=== PATIENT | female | born 1975 | race African-American/Black ===

== ENCOUNTER 2017-07-10 11:13 | Inpatient (IN) ==
[2017-07-10] MEDS ORDERED: NITROGLYCERIN 2% OINT 1 INCH/GM PACK TOP STA (11:45)
[2017-07-10] MEDS ORDERED: NITROGLYCERIN SL 0.4 MG TABLET SL PRN (11:45)
[2017-07-10] MEDS ORDERED: ONDANSETRON 4 MG/2 ML VIAL IV PRN ×2 (11:45→14:30)
[2017-07-10] MEDS ORDERED: ASPIRIN 325 MG TABLET PO STA (11:45)
[2017-07-10] MEDS ORDERED: MORPHINE 2 MG/1 ML SYRINGE IV PRN ×2 (11:45→14:30)
[2017-07-10] MEDS ORDERED: ENOXAPARIN 100 MG/ML SYRINGE SUBCUT STA (11:45)
--- NOTE | 2017-07-10 11:48 | EKG Report ---
Stationary ECG Study [facility] ER Test Date: 07/10/2017 11:21:31 AM Pat Name: MARIANELA CAMPBELL Department: Room: Gender: F Life Consultant: Yoon Roman : 1975 Requested by: Vick Anderson Order Number: [id number] Reading MD: EDGAR MENDOZA Intervals [place] Rate: 66 P: 66 SC: 149 QRS: 75 QRSD: 80 T: 68 QT: 392 QTc: 406 Interpretive Statements SINUS RHYTHM WITH SINUS ARRHYTHMIA at 66 bpm NONSPECIFIC T-WAVE ABNORMALITY Electronically Signed On 07-13-17 12:23:52 CDT by EDGAR MENDOZA [id number]
[2017-07-10] MEDS ORDERED: ASPIRIN 325 MG TABLET ONE (11:51)
[2017-07-10] MEDS ORDERED: NITROGLYCERIN 2% OINT 1 INCH/GM PACK TOP ONE (11:51)
[2017-07-10] MEDS ORDERED: ENOXAPARIN 100 MG/ML SYRINGE SUBCUT ONE (11:51)
--- NOTE | 2017-07-10 11:51 | Emergency Department Note ---
Naseem Herrera Gwan, am scribing for, and in the presence of, Vick Elliott MD 11:38 . Lexi Herrera James D, MD, personally performed the services described in this documentation, ascribed by Pina Gusman in my presence, and it is both accurate and complete . Arrival - Arrival Chief Complaint: Chest Pain Stated Complaint: chest pain,SOB ED Nursing Triage Note: c/o mid-sternal chest pain onset 07/06/17. Describes as tightness. +shortness of breath. +nausea. +productive cough with yellow sputum. Mode of Arrival: Wheelchair Limitations: No Limitations Source: Patient, Old Records Reviewed, RN Notes Reviewed - History of Present Illness HPI Narrative: Patient is a 41 y/o female who presents to the ED with a c/o mid-sternal chest pain with an onset 4 days ago. Patient describes her chest discomfort as a constant pressure and exertion exacerbates her discomfort. She also stated that she has been having SOB, nausea and productive cough with yellow sputum. She denies having any hx of heart problems or DM. Patient stated that she is in pain while in ED. No other problems/complaints reported in ED. Onset (ago): day(s) Consistency: constant Severity: moderate Date of Last Menstrual Period: 3 weeks ago Allergies/Adverse Reactions: Allergies Allergy/AdvReac Type Severity Reaction Status Date / Time No Known Allergies Allergy Verified 07/10/17 11:27 Review of System - Review of System 12 point system: reviewed and no additional remarkable complaints except as stated - Review of System Respiratory: Present: as per HPI, cough, other (shortness of breathe) Cardiovascular: Present: as per HPI, chest pain Gastrointestinal: Present: as per HPI, nausea. Absent: abdominal pain, vomiting , diarrhea Medical,Surgical,& Family Hx - Medical History Endocrine: History of: Thyroid Disorder Other: History of: HIV - Social History Smoking Status: Never smoker Frequency of Alcohol Use: None Type of Drug Use: None Exam Physical Examination: GENERAL: This is a well-nourished, well-developed female in no apparent distress. VITAL SIGNS: HEENT: Head is normocephalic and atraumatic. Pupils are equally round and reactive to light. Extraocular movement are intact. Oropharynx is benign with moist mucous membranes. NECK: Neck is soft and supple without tenderness. There are no masses. There is no lymphadenopathy. LUNGS: Lungs are clear to auscultation bilaterally. Chest rises symmetrically. There is no chest wall tenderness. CV: Heart is regular rate and rhythm without murmurs, rubs, or gallops. ABDOMEN: Abdomen is soft, non-tender to palpation. There are no abnormal masses palpated. There is no organomegaly. Bowel sounds are present and active. SKIN: Skin is warm and dry. No rash. EXTREMITIES: Patient has full range of motion without tenderness. There is no pedal edema. NEUROLOGIC: Awake, alert, and oriented x4. Cranial nerves II through XII are grossly intact. There are no motorsensory deficits. PSYCHIATRIC: Normal affect. Normal mood. Vital Signs: Vital Signs Temperature 97.0 F L 07/10/17 12:08 Pulse Rate 62 07/10/17 12:08 Respiratory Rate 20 07/10/17 12:08 Blood Pressure 137/87 07/10/17 12:08 O2 Sat by Pulse Oximetry 98 07/10/17 11:30 Course - Consultations Consultation #1: Discussed with hospitalist. Patient will be admitted to their service. Time: 13:14 Results - Labs CBC & BMP: 07/10/17 11:46 07/10/17 11:46 Lab Results: I have reviewed the patients labs Labs: Laboratory Tests 07/10/17 11:46 Troponin I < 0.015 - EKG EKG results: interpreted by ERMD - Impressions EKG: Normal sinus rhythm with sinus arrhythmia, rate 66, nonspecific ST-T wave changes. - Diagnostic Findings Procedure: Chest x-ray: image reviewed by me (No infiltrates, no pleural effusions.) Disposition Clinical Impression: Chest pain Case discussed with: patient Disposition: Still a Patient Condition: Stable
[2017-07-10 11:53] LABS: Basophils # 0.1 10*3/uL (0.0-0.2); Basophils % 0.6 % (0.0-0.8); Eosinophils # 0.5 10*3/uL (0.0-0.87); Eosinophils % 4.7 % (0.00-10.9); Hematocrit 31.9 VOL% (35.7-47.0); Hemoglobin 9.8 GM/DL (12.0-16.0); Immature Granulocytes % 0.8 %; Immature Granulocytes Absolute 0.08 #; Lymphocytes # 4.9 10*3/uL (1.4-4.0); Lymphocytes % 46.9 % (21.3-54.2); Mean Corpuscular HGB Conc 30.7 GM/DL (32-36); Mean Corpuscular Hemoglobin 25 PG (27-34); Mean Corpuscular Volume 79.9 FL (87-102); Mean Platelet Volume 10.1 FL (9.6-12.0); Monocytes # 0.9 10*3/uL (0.11-0.8); Monocytes % 8.1 % (1.7-12.7); Neutrophils # 4.1 10*3/uL (1.4-7.4); Neutrophils % 38.9 % (38.7-73.9); Platelet Count 462 T/CUMM (130-400); Red Blood Count 3.99 MC/CUMM (3.8-5.5); Red Cell Distribution Width 17.1 % (9.3-17.3); White Blood Count 10.5 T/CUMM (4-12)
[2017-07-10] MEDS ORDERED: MORPHINE 2 MG/1 ML SYRINGE ONE (11:56)
[2017-07-10] MEDS ORDERED: ONDANSETRON 4 MG/2 ML VIAL ONE (11:56)
[2017-07-10 12:02] LABS: PT Patient Result 10.3 SECS
--- NOTE | 2017-07-10 12:13 | XRay Report ---
2 view chest. Indication: Chest pain. Comparison: September 19, 2014. The heart and mediastinal contours are unremarkable. The pulmonary vasculature is normal. There is no consolidation, pneumothorax, or pleural effusion. The osseous structures are unremarkable. Impression: No abnormality is seen. PROCEDURE INTERPRETED AT [facility] DEPARTMENT OF RADIOLOGY Final Report Signed by: Dr. Christina Martinez
[2017-07-10 12:15] LABS: Alanine Aminotransferase 20 U/L (13-56); Albumin 3.4 G/DL (3.4-5.0); Alkaline Phosphatase 111 U/L (45-117); Aspartate Amino Transferase 13 U/L (0-37); Bilirubin,Total < 0.39 MG/DL (0.2-1.0); Blood Urea Nitrogen 10 MG/DL (7-18); Calcium 8.7 MG/DL (8.5-10.1); Glucose 99 MG/DL (74-106); Sodium 136 MMOL/L (136-145); Total Protein 7.9 G/DL (6.4-8.3)
[2017-07-10] MEDS ORDERED: ALBUTEROL 2.5 MG/3 ML NEB RESP TX PRN (13:44)
[2017-07-10] MEDS ORDERED: DOCUSATE SODIUM 100 MG CAPSULE PO PRN (14:30)
[2017-07-10] MEDS ORDERED: ACETAMINOPHEN 325 MG TABLET PO PRN (14:30)
[2017-07-10] MEDS ORDERED: diphenhydrAMINE CAP 25 MG CAPSULE PO PRN (14:30)
[2017-07-10] MEDS ORDERED: guaiFENesin/DM ER 600-30 MG TABLET PO PRN (14:30)
[2017-07-10] MEDS ORDERED: ALUM/MAG/SIMETH/LIDO VISC 1:1 30 ML BOTTLE PO ONE ×2 (14:37→19:00)
--- NOTE | 2017-07-10 14:46 | Hospitalist History & Physical ---
<Sierra Holly - Last Filed: 07/10/17 14:41> Assessment and Plan - Time spent with patient Time spent with patient: Greater than 30 minutes (1) Shortness of breath Status: Acute Assessment and plan: 41-year-old -[place] female with history of HIV and hyperthyroidism admitted by the hospitalist service with chest pain for 3-4 days with associated nausea and shortness of breath. Her initial workup has been negative thus far. We will admit the patient overnight to obtain serial EKG and troponins. Went ahead and ordered a GI cocktail to rule out GERD and ordered Protonix daily as well. Do not feel GI consult is needed due to patient not having difficulty swallowing or complaints of food getting stuck in her esophagus. Since patient just saw her HIV physician yesterday and all checked out without problems no need to consult Dr. Jeffries. Went ahead and continued her home medications including her Zithromax and breathing treatments received from primary care physician. Dr. Sandoval will see and examine patient and further recommendations to follow. Current Visit: Yes (2) Nausea Status: Acute Current Visit: Yes (3) History of HIV infection Status: Acute Current Visit: Yes (4) Hyperthyroidism Status: Acute Current Visit: Yes (5) Chest pain Status: Acute Current Visit: Yes History of Present Illness Chief complaint: Substernal chest pain, nausea, shortness of breath History of present illness: Ms. Lozano is a 41 year old -[place] female with history of HIV positive and hyperthyroidism presenting to the ED with a 3-4 day history of substernal unrelenting chest pain that worsens with exertion associated with nausea and shortness of breath. Patient states she went to immediate care clinic where she was given some Zithromax and steroid shot. She feels that has not improved much since then. She points to the middle of her sternum and states it feels like a burning gnawing sensation. She does not have difficulty swallowing solids or liquids and has not had any problems eating. She states she does see a physician for her HIV she just had an appointment [place] yesterday. They did blood work and she states her CD4 counts are okay and everything looks good. She is to follow-up in September. Patient is afebrile her vital signs are stable. She does have iron deficiency anemia with her H&H at 9.8/31.9 but otherwise her chemistry, CBC and troponins are normal. Her chest x-ray shows no acute abnormality. Her EKG shows sinus rhythm with sinus arrhythmia with a nonspecific T-wave abnormality. Upon exam her chest is clear and she does have sinus rhythm with few PVCs. Her abdomen is soft and nontender she has no lower extremity edema. After discussion with Dr. Elliott the ED physician and Dr. Sandoval the admitting hospitalist, it was agreed patient will be admitted for further evaluation and treatment. Home Medications Medication Instructions Recorded Confirmed Type Albuterol Sulfate [Ventolin HFA] 1 - 2 puffs INH Q4H PRN 07/10/17 07/10/17 History Azithromycin Tab [Zithromax Tab] 250 mg PO DAILY 07/10/17 07/10/17 History Darunavir Ethanolate [Prezista] 600 mg PO BID 07/10/17 07/10/17 History Emtricitabine/Tenofov Alafenam 1 tablet PO QAM 07/10/17 07/10/17 History [Descovy 200-25 mg Tablet] Propranolol HCl [Propranolol Tab] 20 mg PO BEDTIME 07/10/17 07/10/17 History Ritonavir [Norvir] 100 mg PO BID 07/10/17 07/10/17 History methIMAzole [Methimazole] 10 mg PO QAM 07/10/17 07/10/17 History methIMAzole [Methimazole] 20 mg PO BID@1200,2000 07/10/17 07/10/17 History Allergies Allergy/AdvReac Type Severity Reaction Status Date / Time No Known Allergies Allergy Verified 07/10/17 11:27 Medical,Surgical,& Family Hx - Medical History Endocrine: History of: Thyroid Disorder Other: History of: HIV - Surgical History HEENT Surgeries: Patient denies: Eye Surgery Abdominal Surgeries: Patient denies: Cholecystectomy Orthopedic Surgeries: Patient denies;: Orthopedic Surgery - Family History Family History: Reports;: Family Heart Disease - Social History Smoking Status: Never smoker Frequency of Alcohol Use: None Type of Drug Use: None Marital Status: Single Lives With:: Alone Functional capacity: independent ambulation 12 point system: reviewed and no additional remarkable complaints except as stated Exam - Constitutional Vitals: Period Temp Pulse Resp BP Sys/Wagner Pulse Ox Last 24 Hr 97.0 F-97.0 F 62-72 18-20 108-137/69-87 98-100 Exam: Constitutional System: No distress. No tremulousness. Head: Normocephalic, atraumatic. Ears, Nose and Throat System: No evidence of Otitis or Mastoiditis. No epistaxis or discharge Eyes System: Pupils equal, round, and reactive. Extraocular muscles intact. Neck: Supple, without adenopathy, No jugular venous distention. No thyromegaly, neck mass, or prior surgery apparent. Respiratory System: Chest clear to auscultation. Cardiovascular System: Heart with regular rate and rhythm. No murmur. GI System: Abdomen soft, nontender. Normo active bowel sounds present. Musculoskeletal System: limbs with no pedal edema. Full distal pulses. Neurological System: No discernable sensory deficit. No aphasia Psychiatric System: Conversation is rational Results - Labs CBC & BMP: 07/10/17 11:46 07/10/17 11:46 Lab Results: I have reviewed the past 24 hour labs - EKG EKG results: sinus rhythm - Diagnostic Findings Procedure: Chest x-ray: report reviewed by me (No acute process) <John Sandoval - Last Filed: 07/10/17 15:20> History of Present Illness History of present illness: Ms. Lozano is a 41 year old female with approximately 3 day history of chest pain. Patient has a previously known history of HIV for which she has been followed by Dr. Lopez, whom she has recently seen prior to this admission. Evaluation in the emergency department disclose no evidence of an acute myocardial infarction. I have interviewed and examined the patient and reviewed all the available laboratory and radiographic test results. I agree with the assessment and plans of RAMONITA Fischer. The patient is to be admitted to the hospital for further evaluation and management. Cardiology has been consulted. Exam - Constitutional Vitals: Period Temp Pulse Resp BP Sys/Wagner Pulse Ox Last 24 Hr 97.0 F-97.0 F 60-72 18-20 108-137/69-87 98-100 Results - Labs CBC & BMP: 07/10/17 11:46 07/10/17 11:46
--- NOTE | 2017-07-10 15:19 | EKG Report ---
Stationary ECG Study [facility] ER Test Date: 07/10/2017 3:17:50 PM Pat Name: MARIANELA CAMPBELL Department: Room: EDNCIT Gender: F Tank Calibrator: : 1975 Requested by: Vick Anderson Order Number: [id number] Reading MD: KANDICE HANSEN Intervals [place] Rate: 61 P: 24 ID: 128 QRS: 72 QRSD: 87 T: 44 QT: 427 QTc: 431 Interpretive Statements SINUS RHYTHM NONSPECIFIC T-WAVE ABNORMALITY Electronically Signed On 07-13-17 17:14:18 CDT by KANDICE HANSEN [id number]
[2017-07-10 15:41] LABS: Risk Ratio 4.04; Thyroid Stimulating Hormone 2.97 uIU/ml (0.358-3.74); VLDL CHOLESTEROL 23.2 MG/DL
[2017-07-10 15:44] LABS: Free T4 (Free Thyroxine) 0.72 NG/DL (0.76-1.46); Troponin I Only < 0.015 NG/ML (0.00-0.045)
[2017-07-10] MEDS ORDERED: ALBUTEROL 2.5 MG/3 ML NEB RESP TX ONE (15:51)
[2017-07-10] MEDS: ENOXAPARIN 40 MG/0.4 ML SYRINGE SUBCUT SCH (17:17)
--- NOTE | 2017-07-10 17:32 | EKG Report ---
Stationary ECG Study [facility] Test Date: 07/10/2017 5:33:33 PM Pat Name: MARIANELA CAMPBELL Department: Room: 239 Gender: F Milling Machine Set Up Operator: JARETT : 1975 Requested by: Vick Anderson Order Number: [id number] Reading MD: KANDICE HANSEN Intervals [place] Rate: 79 P: 55 [place]: 146 QRS: 49 QRSD: 82 T: 52 QT: 448 QTc: 482 Interpretive Statements SINUS RHYTHM WITH SINUS ARRHYTHMIA Electronically Signed On 07-13-17 17:16:06 CDT by KANDICE HANSEN [id number]
[2017-07-10] MEDS: SODIUM CHLORIDE 0.9% 1,000 ML IV SCH (17:34)
[2017-07-10] MEDS: AZITHROMYCIN 250 MG TABLET PO SCH (17:36)
[2017-07-10] MEDS: PANTOPRAZOLE 40 MG TABLET PO SCH (17:36)
[2017-07-10] MEDS: ALBUTEROL/IPRATROPIUM 3 ML NEB RESP TX SCH (19:32)
[2017-07-10] MEDS: methIMAzole 10 MG TABLET PO SCH (21:09)
[2017-07-10] MEDS: PROPRANOLOL 20 MG TABLET PO SCH (21:09)
[2017-07-10 22:28] LABS: Troponin I Only < 0.015 NG/ML (0.00-0.045)
[2017-07-11] MEDS: ALBUTEROL/IPRATROPIUM 3 ML NEB RESP TX SCH ×4 (00:16→19:06)
[2017-07-11] MEDS: SODIUM CHLORIDE 0.9% 1,000 ML IV SCH ×3 (01:40→18:24)
[2017-07-11 05:54] LABS: Basophils # 0.1 10*3/uL (0.0-0.2); Basophils % 0.6 % (0.0-0.8); Eosinophils # 0.5 10*3/uL (0.0-0.87); Eosinophils % 5.3 % (0.00-10.9); Hematocrit 29.4 VOL% (35.7-47.0); Hemoglobin 8.7 GM/DL (12.0-16.0); Immature Granulocytes % 0.7 %; Immature Granulocytes Absolute 0.06 #; Lymphocytes # 4.2 10*3/uL (1.4-4.0); Lymphocytes % 49.6 % (21.3-54.2); Mean Corpuscular HGB Conc 29.6 GM/DL (32-36); Mean Corpuscular Hemoglobin 24 PG (27-34); Mean Corpuscular Volume 80.3 FL (87-102); Mean Platelet Volume 10.5 FL (9.6-12.0); Monocytes # 0.8 10*3/uL (0.11-0.8); Monocytes % 9.8 % (1.7-12.7); Neutrophils # 2.9 10*3/uL (1.4-7.4); Platelet Count 432 T/CUMM (130-400); Red Blood Count 3.66 MC/CUMM (3.8-5.5); White Blood Count 8.5 T/CUMM (4-12)
[2017-07-11 06:25] LABS: Band Neutrophils 1 % (0-10); Eosinophils 6 % (0-10); Giant Platelets Few; Hypochromasia 1+; Lymphocytes 50 % (20-55); Ovalocytes Slight; Platelet Estimate Adequate; Segmented Neutrophils 31 % (50-85); Total Cells Counted 100
[2017-07-11 06:40] LABS: Troponin I Only < 0.015 NG/ML (0.00-0.045)
[2017-07-11 06:59] LABS: Albumin 2.8 G/DL (3.4-5.0); Bilirubin,Total 0.8 MG/DL (0.2-1.0); Calcium 8.6 MG/DL (8.5-10.1); Osmolality,Calculated 280.1 MOS/KG (273-304); Potassium 4.6 MMOL/L (3.5-5.1); Total Protein 6.2 G/DL (6.4-8.3)
[2017-07-11] MEDS: ENOXAPARIN 40 MG/0.4 ML SYRINGE SUBCUT SCH (09:41)
[2017-07-11] MEDS: PANTOPRAZOLE 40 MG TABLET PO SCH (09:41)
[2017-07-11] MEDS: DESCOVY 200MG/25MG PO SCH (09:42)
[2017-07-11] MEDS: NORVIR 100 MG PO SCH ×2 (09:42→21:03)
[2017-07-11] MEDS: PREZISTA 600MG PO SCH ×2 (09:42→21:03)
[2017-07-11] MEDS: methIMAzole 10 MG TABLET PO SCH ×3 (09:47→21:03)
--- NOTE | 2017-07-11 10:25 | Cardiology Consult Note ---
Assessment and Plan - Time spent with patient Time spent with patient: Greater than 30 minutes (1) Cough Status: Acute Assessment and plan: Suspicious for bronchitis or croup. She believes this may be improving minimally. Current Visit: Yes (2) Chest pain Status: Acute Assessment and plan: Atypical for chest pain. Will continue cycle cardiac biomarkers and EKG. Query as to whether this is GI in nature. Will add PPI to her medication regimen. Also, she is having a musculoskeletal component to the reproducible chest pain as well. Current Visit: Yes (3) Shortness of breath Status: Acute Assessment and plan: Suspect bronchitis. May benefit from outpatient echocardiogram and/or stress test Current Visit: Yes (4) History of HIV infection Status: Chronic Assessment and plan: Sees her physician routinely. Stable Current Visit: Yes History of Present Illness - Data of Consult Patient: new to practice Consult date: 07/11/17 Requesting Physician: Lizett Bah - Consult Narrative Reason for consult: chest pain History of present illness: ORCHESTRA CONDUCTOR: DR. HANSEN ([facility]) Ms. Lozano, 41BF, with no real risk factors for cardiac disease other than obesity. History of hyperthyroidism, HIV. Admitted July 10, 2017 with complaints of unrelenting chest pain occurring for approximately 3 days. Cardiology was consulted for evaluation of chest pain. Cardiac biomarkers are negative, EKG is unremarkable. Patient reports she was recently treated for sinus infection outpatient and since that time, she has begun nonproductive, frequent coughing with shortness of breath. As I entered the room, she has a "barking" cough similar to croup. Chest pain has been occurring for approximately 24 hours. Described as "gnawing and burning" in the mid sternal area. Chest pain is not associated with shortness of breath. She is tender in this area when palpating but also tender in multiple other areas including epigastric area and right upper abdominal quadrant. Chest pain is not brought on with exertion. Patient acknowledges she had recent mild bilateral lower extremity swelling after traveling back from [place], [place]. No prior history of DVT. Will check for DVT with venous ultrasound. PPI. Patient is anemic and still has a menstrual cycle. She tells me she is spotting from the vagina currently that she recently had a full menstrual cycle. At this point, patient may benefit from out patient stress testing and echocardiogram. Patient may benefit from GI evaluation. I will further discuss with Dr. Hansen and await additional recommendations. CC: Lizett Bah MD - Home Medications and Allergies Home Medications: Home Medications Medication Instructions Recorded Confirmed Type Albuterol Sulfate [Ventolin HFA] 1 - 2 puffs INH Q4H PRN 07/10/17 07/10/17 History Azithromycin Tab [Zithromax Tab] 250 mg PO DAILY 07/10/17 07/10/17 History Darunavir Ethanolate [Prezista] 600 mg PO BID 07/10/17 07/10/17 History Emtricitabine/Tenofov Alafenam 1 tablet PO QAM 07/10/17 07/10/17 History [Descovy 200-25 mg Tablet] Propranolol HCl [Propranolol Tab] 20 mg PO BEDTIME 07/10/17 07/10/17 History Ritonavir [Norvir] 100 mg PO BID 07/10/17 07/10/17 History methIMAzole [Methimazole] 10 mg PO QAM 07/10/17 07/10/17 History methIMAzole [Methimazole] 20 mg PO BID@1200,199907/10/17 07/10/17 History Allergies/Adverse Reactions: Allergies Allergy/AdvReac Type Severity Reaction Status Date / Time No Known Allergies Allergy Verified 07/10/17 11:27 Review of systems: REVIEW OF SYSTEMS: - Constitutional Constitutional: Present: Fatigue over the past week. Patient's states she does snore but not loudly. No air hunger or gasping for air while sleeping. Absent: syncope, anorexia, night sweats - EENT Eyes: Absent: blurry vision, loss of vision, diplopia Ears: Absent: decreased hearing, ear pain, ear discharge - Cardiovascular Cardiovascular: Denies: chest pain with exertion. Chest pain has been consistent and described as gnawing and burning. Mild recent edema bilateral lower extremities. Denies palpitations. Absent: chest pain with deep breath, claudication - Respiratory Respiratory: Present: MUNROE, dry hacking cough. Unable to produce phlegm at this time. Absent: wheezing, hemoptysis, change in phlegm color - Gastrointestinal Gastrointestinal: Denies: constipation. Epigastric and right upper quadrant abdominal discomfort to palpation. Denies vomiting blood or passing blood in her stool. - Genitourinary Genitourinary: Vaginal spotting. Absent: difficulty urinating, dysuria, urinary hesitancy, flank pain - Musculoskeletal Musculoskeletal: Present: back pain Absent: joint swelling, muscle cramps, muscle weakness - Neurological Neurological: Present: normal gait without frequent falls. Absent: dizziness, hemiparesis - Psychiatric Psychiatric: Absent: anxiety, depression, difficulty concentrating - Endocrine Endocrine: Absent: cold intolerance, heat intolerance, polyuria, polyphagia, polydipsia - Hematologic/Lymphatic Hematologic/Lymphatic: Present: easy bruising. Absent: easy bleeding -Integumentary Integumentary: Absent: lesions, rashes, skin breakdown Medical,Surgical,& Family Hx - Medical History Cardio: No history of: Cardiac Dysrhythmia, CAD, Hypertension, NM Endocrine: History of: Thyroid Disorder Other: History of: HIV - Surgical History HEENT Surgeries: Patient denies: Eye Surgery Abdominal Surgeries: Patient denies: Cholecystectomy Reproductive Surgeries: Surgical HX of;: Tubal Ligation Orthopedic Surgeries: Patient denies;: Orthopedic Surgery - Family History Family History: Reports;: Family Heart Disease - Social History Smoking Status: Never smoker Have you smoked in the last 12 months: No Frequency of Alcohol Use: None Type of Drug Use: None Marital Status: Lives With:: Spouse Functional capacity: independent ambulation Physical Examination Vital Signs Temp Pulse Resp BP Pulse Ox 97.0 F L 62 20 137/87 100 07/10/17 11:20 07/10/17 11:20 07/10/17 11:20 07/10/17 11:20 07/10/17 11:20 Exam: General: [Appears well with no apparent distress.] [Pleasant and cooperative. ] [Appears comfortable.] HEENT: [PERRL, normocephalic, atraumatic. Mucous membranes moist. No jaundice noted. Conjunctiva moist and clear, sclerae anicteric] Neck: Unable to assess for JVD due to habitus. No thyromegaly or lymphadenopathy noted. No carotid bruit appreciated Cardiac: [Regular rate and rhythm.] [No murmur, rub or gallop.] Tender to palpation mid chest. Lungs: [Clear to auscultation without accessory muscle use to assist the respiratory pattern.] Not requiring oxygen Abdomen: Soft, bowel sounds normoactive. Mid epigastric and right upper quadrant abdominal tenderness to light palpation. No abdominal bruit or thrill noted. No masses noted. Musculoskeletal: No fluid collection. Decreased range of motion is noted. Extremities: No clubbing, cyanosis noted. [ No edema noted.] Upper extremity pulses 2+. Lower extremity pulses 2+. Capillary refill less than 3 seconds. Skin: No unusual lesions or rashes. No skin breakdown appreciated. Neuro: Awake, alert and oriented 3. Moves all extremities well without hemiparesis or paralysis. No essential tremor is appreciated. Result/EKG - Labs CBC & BMP: 07/11/17 04:35 07/11/17 04:35 Lab Results: I have reviewed the past 24 hour labs Labs: Laboratory Results - last 24 hr 07/10/17 07/10/17 07/10/17 11:46 11:46 11:46 WBC RBC Hgb Hct MCV MCH MCHC RDW Plt Count MPV Neut % (Auto) Lymph % (Auto) [place] % (Auto) Eos % (Auto) Baso % (Auto) Neut # (Auto) Lymph # (Auto) [place] # (Auto) Eos # (Auto) Baso # (Auto) Total Counted Immature Gran % Nucleated RBC % Immature Gran # Segmented Neutrophils Band Neutrophils Lymphocytes Monocytes Eosinophils Nucleated RBCs # Platelet Estimate Giant Platelets Immature Plt Fraction Hypochromasia Ovalocytes INR 1.0 PT Patient/Control Mix 10.3 Circ Anticoag PTT 24.0 Sodium 136 Potassium 4.0 Chloride 104 Carbon Dioxide 26 Anion Gap 10.0 BUN 10 Creatinine 0.90 GFR Calculation 104 BUN/Creatinine Ratio 11.00 Glucose 99 Calculated Osmolality 270.0 L Calcium 8.7 Total Bilirubin < 0.39 AST 13 ALT 20 Alkaline Phosphatase 111 Total Creatine Kinase CK-MB (CK-2) Troponin I < 0.015 Total Protein 7.9 Albumin 3.4 Globulin 4.5 H Albumin/Globulin Ratio 0.7 L Triglycerides Cholesterol LDL Cholesterol VLDL Cholesterol HDL Cholesterol Heart Disease Risk Ratio Lipase 170.0 Free T4 TSH 3rd Generation 07/10/17 07/10/17 07/10/17 11:46 14:07 14:07 WBC 10.5 RBC 3.99 Hgb 9.8 L Hct 31.9 L MCV 79.9 L MCH 25 L MCHC 30.7 L RDW 17.1 Plt Count 462 H MPV 10.1 Neut % (Auto) 38.9 Lymph % (Auto) 46.9 [place] % (Auto) 8.1 Eos % (Auto) 4.7 Baso % (Auto) 0.6 Neut # (Auto) 4.1 Lymph # (Auto) 4.9 H [place] # (Auto) 0.9 H Eos # (Auto) 0.5 Baso # (Auto) 0.1 Total Counted Immature Gran % 0.8 Nucleated RBC % 0.0 Immature Gran # 0.08 Segmented Neutrophils Band Neutrophils Lymphocytes Monocytes Eosinophils Nucleated RBCs # 0.00 Platelet Estimate Giant Platelets Immature Plt Fraction 0.0 Hypochromasia Ovalocytes INR PT Patient/Control Mix Circ Anticoag PTT Sodium Potassium Chloride Carbon Dioxide Anion Gap BUN Creatinine GFR Calculation BUN/Creatinine Ratio Glucose Calculated Osmolality Calcium Total Bilirubin AST ALT Alkaline Phosphatase Total Creatine Kinase 62 CK-MB (CK-2) 1.7 Troponin I < 0.015 Total Protein Albumin Globulin Albumin/Globulin Ratio Triglycerides 116 Cholesterol 198 LDL Cholesterol 136.0 VLDL Cholesterol 23.2 HDL Cholesterol 49 Heart Disease Risk Ratio 4.04 Lipase Free T4 0.72 L TSH 3rd Generation 2.970 07/10/17 07/10/17 07/11/17 17:41 21:46 04:35 WBC 8.5 RBC 3.66 L Hgb 8.7 L Hct 29.4 L MCV 80.3 L MCH 24 L MCHC 29.6 L RDW 17.0 Plt Count 432 H MPV 10.5 Neut % (Auto) 34.0 L Lymph % (Auto) 49.6 [place] % (Auto) 9.8 Eos % (Auto) 5.3 Baso % (Auto) 0.6 Neut # (Auto) 2.9 Lymph # (Auto) 4.2 H [place] # (Auto) 0.8 Eos # (Auto) 0.5 Baso # (Auto) 0.1 Total Counted 100 Immature Gran % 0.7 Nucleated RBC % 0.0 Immature Gran # 0.06 Segmented Neutrophils 31 L Band Neutrophils 1 Lymphocytes 50 Monocytes 12 Eosinophils 6 Nucleated RBCs # 0.00 Platelet Estimate Adequate Giant Platelets Few Immature Plt Fraction 0.0 Hypochromasia 1+ Ovalocytes Slight INR PT Patient/Control Mix Circ Anticoag PTT Sodium Potassium Chloride Carbon Dioxide Anion Gap BUN Creatinine GFR Calculation BUN/Creatinine Ratio Glucose Calculated Osmolality Calcium Total Bilirubin AST ALT Alkaline Phosphatase Total Creatine Kinase 54 CK-MB (CK-2) 1.7 Troponin I < 0.015 < 0.015 Total Protein Albumin Globulin Albumin/Globulin Ratio Triglycerides Cholesterol LDL Cholesterol VLDL Cholesterol HDL Cholesterol Heart Disease Risk Ratio Lipase Free T4 TSH 3rd Generation 07/11/17 07/11/17 04:35 04:35 WBC RBC Hgb Hct MCV MCH MCHC RDW Plt Count MPV Neut % (Auto) Lymph % (Auto) [place] % (Auto) Eos % (Auto) Baso % (Auto) Neut # (Auto) Lymph # (Auto) [place] # (Auto) Eos # (Auto) Baso # (Auto) Total Counted Immature Gran % Nucleated RBC % Immature Gran # Segmented Neutrophils Band Neutrophils Lymphocytes Monocytes Eosinophils Nucleated RBCs # Platelet Estimate Giant Platelets Immature Plt Fraction Hypochromasia Ovalocytes INR PT Patient/Control Mix Circ Anticoag PTT Sodium 142 Potassium 4.6 Chloride 109 H Carbon Dioxide 25 Anion Gap 12.6 BUN 9 Creatinine 0.80 GFR Calculation 119 BUN/Creatinine Ratio 11.00 Glucose 88 Calculated Osmolality 280.1 Calcium 8.6 Total Bilirubin 0.80 AST 9 ALT 16 Alkaline Phosphatase 97 Total Creatine Kinase 44 CK-MB (CK-2) 1.2 Troponin I < 0.015 Total Protein 6.2 L Albumin 2.8 L Globulin 3.4 Albumin/Globulin Ratio 0.8 L Triglycerides Cholesterol LDL Cholesterol VLDL Cholesterol HDL Cholesterol Heart Disease Risk Ratio Lipase Free T4 TSH 3rd Generation - Diagnostic Findings Procedure: Chest x-ray: report reviewed by me - EKG EKG results: interpreted by me EKG shows: sinus rhythm
[2017-07-11] MEDS: AZITHROMYCIN 250 MG TABLET PO SCH (10:26)
--- NOTE | 2017-07-11 11:31 | CT Report ---
CT chest pulmonary embolism Indication: Chest pain Comparison: None available Technique: Axial CT imaging of the chest is performed with intravenous contrast. Contrast dose is 80 cc of Omnipaque 350. Findings: No thrombus or other abnormality is identified in the pulmonary arteries or veins. The pulmonary vessel caliber is within normal limits. The heart, mediastinum and great vessels appear within normal limits. Lung parenchyma shows no evidence of airspace disease or abnormal density. No effusion or pneumothorax is present. Impression: No evidence of pulmonary thromboembolism or other acute process demonstrated. This CT exam was performed using one or more the following dose reduction techniques: Automated exposure control, adjustment of the MA and/or KV according to patient size, or use of iterative reconstruction technique. PROCEDURE INTERPRETED AT [facility] DEPARTMENT OF RADIOLOGY Final Report Signed by: Dr. Robert Johnson
--- NOTE | 2017-07-11 11:45 | Ultrasound Report ---
Exam: US venous doppler LE BI Indication: Edema Date: 07/11/2017 10:32 AM Findings: Grayscale color flow duplex/Doppler imaging and spectral analysis waveform imaging was performed with real-time ultrasound with image stored and captured. The right common femoral, superficial femoral, popliteal saphenous veins are patent with normal augmentation and compression. There is no evidence of popliteal or Chaidez's cyst. Normal wave form analysis present. Normal color flow The left common femoral, superficial femoral, popliteal saphenous veins are patent with normal augmentation and compression. There is no evidence of popliteal or Chaidez's cyst. Normal wave form analysis present. Normal color flow Impression: 1. No DVT PROCEDURE INTERPRETED AT [facility] DEPARTMENT OF RADIOLOGY Final Report Signed by: Dr. Fito Kumar
--- NOTE | 2017-07-11 12:29 | Hospitalist Progress Note ---
Assessment and Plan (1) Chest pain Status: Acute Assessment and plan: Cardiac enzymes were essentially unremarkable. CTA of chest was negative for the presence of pulmonary embolism. No further episodes of chest pain has been verbalized. We will monitor closely. Current Visit: Yes (2) Cough Status: Acute Assessment and plan: The patient reports a decrease in cough however reports intermittent coughing spells. We will start Tessalon Perles as needed as needed. We will observe the patient overnight and assess for discharge appropriateness in a.m. Current Visit: Yes (3) Hyperthyroidism Status: Acute Assessment and plan: We will continue Tapazole as previously ordered. Current Visit: Yes Hospitalist: Subjective Interval history: Patient seen and examined; chart reviewed. No significant overnight events reported per staff. Cardiac enzymes were essentially negative. Will continue to monitor closely and assess for discharge appropriateness in a.m. Exam - Constitutional Vitals: Period Temp Pulse Resp BP Sys/Wagner Pulse Ox Last 24 Hr 96.6 F-97.7 F 54-104 16-20 92-126/51-79 96-100 General appearance: normal weight, no acute distress - Head Head exam: Present: normal inspection, normocephalic, atraumatic - Eye Eye exam: Present: EOMI, conjunctival injection Pupils: Present: MARLENY, normal accommodation - ENT ENT exam: Present: normal exam, normal external ear exam, normal oropharynx - Neck Neck exam: Present: normal inspection. Absent: lymphadenopathy, meningismus, tenderness, thyromegaly - Respiratory Respiratory exam: Present: clear to auscultation bilaterally. Absent: rales, rhonchi, stridor, wheezes - Cardiovascular Cardiovascular exam: Present: regular rate and rhythm. Absent: carotid bruit, diastolic murmur, gallop, JVD, rubs, systolic murmur - GI/Abdominal GI/Abdominal exam: Present: normal bowel sounds, soft - Extremities Exam Extremities exam: Present: normal inspection, normal capillary refill, full ROM. Absent: edema - Back Exam Back exam: Present: normal inspection - Neurological Exam Neurological exam: Present: alert, oriented X3, CN II-XII intact - Psychiatric Psychiatric exam: Present: normal affect, normal mood - Skin Skin exam: Present: normal color, warm, dry Results - Labs CBC & BMP: 07/11/17 04:35 07/11/17 04:35 Lab Results: I have reviewed the past 24 hour labs
[2017-07-11] MEDS: PROPRANOLOL 20 MG TABLET PO SCH (21:03)
[2017-07-11] MEDS: TEMAZEPAM 15 MG CAPSULE PO PRN (22:00)
[2017-07-12] MEDS: ALBUTEROL/IPRATROPIUM 3 ML NEB RESP TX SCH ×4 (00:26→19:33)
[2017-07-12] MEDS: SODIUM CHLORIDE 0.9% 1,000 ML IV SCH ×3 (02:30→18:12)
[2017-07-12 03:15] LABS: Basophils # 0.1 10*3/uL (0.0-0.2); Basophils % 0.7 % (0.0-0.8); Eosinophils # 0.4 10*3/uL (0.0-0.87); Hemoglobin 8.8 GM/DL (12.0-16.0); Immature Granulocytes % 0.7 %; Immature Granulocytes Absolute 0.06 #; Lymphocytes % 46.4 % (21.3-54.2); Mean Corpuscular HGB Conc 30.3 GM/DL (32-36); Mean Corpuscular Hemoglobin 24 PG (27-34); Mean Corpuscular Volume 80.6 FL (87-102); Mean Platelet Volume 10.3 FL (9.6-12.0); Monocytes # 0.9 10*3/uL (0.11-0.8); Monocytes % 9.9 % (1.7-12.7); Neutrophils # 3.2 10*3/uL (1.4-7.4); Neutrophils % 37.3 % (38.7-73.9); Platelet Count 388 T/CUMM (130-400); Red Cell Distribution Width 17.2 % (9.3-17.3); White Blood Count 8.6 T/CUMM (4-12)
[2017-07-12 03:50] LABS: Alanine Aminotransferase 16 U/L (13-56); Albumin 2.8 G/DL (3.4-5.0); Alkaline Phosphatase 91 U/L (45-117); Aspartate Amino Transferase 8 U/L (0-37); Bilirubin,Total < 0.39 MG/DL (0.2-1.0); Blood Urea Nitrogen 8 MG/DL (7-18); Calcium 8.5 MG/DL (8.5-10.1); Glucose 92 MG/DL (74-106); Magnesium 1.9 MG/DL (1.8-2.4); Osmolality,Calculated 278.3 MOS/KG (273-304); Phosphorous 2.8 MG/DL (2.5-4.9); Potassium 4.7 MMOL/L (3.5-5.1); Sodium 141 MMOL/L (136-145); Total Protein 6.2 G/DL (6.4-8.3)
--- NOTE | 2017-07-12 07:47 | XRay Report ---
XR chest 1V portable Indication: COPD Comparison: 10 July 2017 Findings: The heart and mediastinum are normal in size and configuration. The pulmonary vascularity is normal in caliber. Trace amount of basilar pulmonary densities are present slightly increased from previous study. No other lung infiltrates, effusions, pneumothorax or other abnormality is demonstrated. Impression: Slight increase in basilar pulmonary densities, may indicate atelectasis. PROCEDURE INTERPRETED AT [facility] DEPARTMENT OF RADIOLOGY Final Report Signed by: Dr. Robert Johnson
--- NOTE | 2017-07-12 09:37 | ECHO Report ---
Carmencita Lozano Exam Date: 07/12/2017 08:13 Referring Physician: Technologist: Flor Joseph LRRAUL Age: 41 Ht (in): 65 Wt (lb): 214 Gender: F Exam Location: [facility] Echo Indications: Chest pain, SOB BP: 125 / 79 HR: 83 Rhythm: Sinus Technical Quality: Good IMPRESSIONS Left ventricular ejection fraction is estimated at 65 %. No regional wall motion abnormality. The diastolic parameters are normal. Mild tricuspid insufficiency with normal estimated right sided pressure MEASUREMENTS (Male / Female) Normal Values 2D ECHO LV Diastolic Diameter PLAX 4.3 cm 4.2 - 5.9 / 3.9 - 5.3 cm LV Systolic Diameter PLAX 1.6 cm LV Fractional Shortening PLAX 62.7 % IVS Diastolic Thickness 1.1 cm 0.6 - 1.0 / 0.6 - 0.9 cm LVPW Diastolic Thickness 1.1 cm 0.6 - 1.0 / 0.6 - 0.9 cm Aortic Root Diameter 2.6 cm LA Systolic Diameter LX 3.3 cm 3.0 - 4.0 / 2.7 - 3.8 cm DOPPLER TR Peak Velocity 197.0 cm/s TR Peak Gradient 15.5 mmHg FINDINGS Left Ventricle Normal left ventricular cavity size. Mild concentric left ventricular hypertrophy.left ventricular ejection fraction is estimated at 65 %. The diastolic parameters are normal. Right Ventricle Normal right ventricular size. Right Atrium Normal right atrial size. Left Atrium Normal left atrial size. Mitral Valve Morphologically normal mitral valve. Aortic Valve The aortic valve is trileaflet and has normal motion. Tricuspid Valve Morphologically normal tricuspid valve. Trace tricuspid valve regurgitation. Tricuspid regurgitation velocities suggest a RVSP of 16 mmHg + RVSP. Pulmonic Valve Morphologically normal pulmonic valve. Trace pulmonary valve regurgitation with an end diastoli velocity of less than 100 cm/sec. Pericardium No pericardial effusion. Aorta Normal size aortic root and proximal ascending aorta. Tanika Grant (Electronically Signed) Final Date: 12 July 2017 09:36
[2017-07-12] MEDS: PREZISTA 600MG PO SCH ×2 (10:07→21:37)
[2017-07-12] MEDS: ENOXAPARIN 40 MG/0.4 ML SYRINGE SUBCUT SCH (10:08)
[2017-07-12] MEDS: methIMAzole 10 MG TABLET PO SCH ×3 (10:08→20:06)
[2017-07-12] MEDS: DESCOVY 200MG/25MG PO SCH (10:08)
[2017-07-12] MEDS: PANTOPRAZOLE 40 MG TABLET PO SCH (10:08)
[2017-07-12] MEDS: NORVIR 100 MG PO SCH ×2 (10:08→21:37)
--- NOTE | 2017-07-12 10:23 | Cardiology Progress Note ---
Assessment and Plan - Time spent with patient Time spent with patient: Greater than 30 minutes (1) Cough Status: Acute Assessment and plan: Suspicious for bronchitis or croup. She believes this may be improving minimally. Current Visit: Yes (2) Chest pain Status: Acute Assessment and plan: Atypical for chest pain. Will continue cycle cardiac biomarkers and EKG. Query as to whether this is GI in nature. Will add PPI to her medication regimen. Also, she is having a musculoskeletal component to the reproducible chest pain as well. Current Visit: Yes (3) Shortness of breath Status: Acute Assessment and plan: Suspect bronchitis. May benefit from outpatient echocardiogram and/or stress test Current Visit: Yes (4) History of HIV infection Status: Chronic Assessment and plan: Sees her physician routinely. Stable Current Visit: Yes Cardiology - PN: Subj Interval history: PHYSICAL MEDICINE PHYSICIAN: DR. HANSEN ([facility]) SUMMARY: Ms. Lozano, 41BF, with no real risk factors for cardiac disease other than obesity. History of hyperthyroidism, HIV. Admitted July 10, 2017 with complaints of unrelenting chest pain occurring for approximately 3 days. Cardiology was consulted for evaluation of chest pain. Cardiac biomarkers are negative, EKG is unremarkable. Venous ultrasound lower extremities reveal no DVT. 2016: Overnight, Ms. Lozano is doing well. Reports she is feeling better. Still nonproductive cough, short of breath. Chest pain is basically unchanged. NPO for possible GXT stress test today after echocardiogram. Vital signs stable. Will further discuss with Dr. Dove and await additional recommendations Exam (Progress Note) - Constitutional Vitals: Period Temp Pulse Resp BP Sys/Wagner Pulse Ox Last 24 Hr 96.7 F-98.6 F 69-82 16-20 114-131/62-92 97-100 Exam: General: [Appears well with no apparent distress.] [Pleasant and cooperative. ] [Appears comfortable.] HEENT: [PERRL, normocephalic, atraumatic. Mucous membranes moist. No jaundice noted. Conjunctiva moist and clear, sclerae anicteric] Neck: Unable to assess for JVD due to habitus. No thyromegaly or lymphadenopathy noted. No carotid bruit appreciated Cardiac: [Regular rate and rhythm.] [No murmur, rub or gallop.] Tender to palpation mid chest. Lungs: [Clear to auscultation without accessory muscle use to assist the respiratory pattern.] Not requiring oxygen Abdomen: Soft, bowel sounds normoactive. Mid epigastric and right upper quadrant abdominal tenderness to light palpation. No abdominal bruit or thrill noted. No masses noted. Musculoskeletal: No fluid collection. Decreased range of motion is noted. Extremities: No clubbing, cyanosis noted. [ No edema noted.] Upper extremity pulses 2+. Lower extremity pulses 2+. Capillary refill less than 3 seconds. Skin: No unusual lesions or rashes. No skin breakdown appreciated. Neuro: Awake, alert and oriented 3. Moves all extremities well without hemiparesis or paralysis. No essential tremor is appreciated. Result/EKG - Labs CBC & BMP: 07/12/17 02:09 07/12/17 02:09 Labs: Laboratory Results - last 24 hr 07/12/17 07/12/17 02:09 02:09 WBC 8.6 RBC 3.60 L Hgb 8.8 L Hct 29.0 L MCV 80.6 L MCH 24 L MCHC 30.3 L RDW 17.2 Plt Count 388 MPV 10.3 Neut % (Auto) 37.3 L Lymph % (Auto) 46.4 [place] % (Auto) 9.9 Eos % (Auto) 5.0 Baso % (Auto) 0.7 Neut # (Auto) 3.2 Lymph # (Auto) 4.0 [place] # (Auto) 0.9 H Eos # (Auto) 0.4 Baso # (Auto) 0.1 Immature Gran % 0.7 Nucleated RBC % 0.0 Immature Gran # 0.06 Nucleated RBCs # 0.00 Immature Plt Fraction 0.0 Sodium 141 Potassium 4.7 Chloride 109 H Carbon Dioxide 25 Anion Gap 11.7 BUN 8 Creatinine 0.70 GFR Calculation 140 BUN/Creatinine Ratio 11.00 Glucose 92 Calculated Osmolality 278.3 Calcium 8.5 Phosphorus 2.8 Magnesium 1.9 Total Bilirubin < 0.39 AST 8 ALT 16 Alkaline Phosphatase 91 Total Protein 6.2 L Albumin 2.8 L Globulin 3.4 Albumin/Globulin Ratio 0.8 L - Diagnostic Findings Procedure: Ultrasound: pending (Venous ultrasound) - EKG EKG results: interpreted by me EKG shows: sinus rhythm
--- NOTE | 2017-07-12 10:40 | Event Note ---
Patient underwent exercise stress test without complaints of chest pain. Achieved target heart rate relatively easily. Moderate dyspnea on exertion, fair exercise tolerance. Blood pressure responded appropriately. No significant ST changes noted. Dr. Grant will read, interpreted and advise.
--- NOTE | 2017-07-12 10:48 | Hospitalist Progress Note ---
Assessment and Plan (1) Chest pain Status: Acute Assessment and plan: Cardiac enzymes were essentially unremarkable. CTA of chest was negative for the presence of pulmonary embolism. No further episodes of chest pain has been verbalized. We will monitor closely. Current Visit: Yes (2) Cough Status: Acute Assessment and plan: The patient reports a decrease in cough however reports intermittent coughing spells. We will start Tessalon Perles as needed as needed. We will observe the patient overnight and assess for discharge appropriateness in a.m. Current Visit: Yes (3) Hyperthyroidism Status: Acute Assessment and plan: We will continue Tapazole as previously ordered. Current Visit: Yes (4) Positive blood culture Status: Acute Assessment and plan: Preliminary blood culture report significant for gram-positive rods. Empiric antibiotics were initiated. ID consultation has been requested. We will await for further recommendations. Current Visit: Yes Hospitalist: Subjective Interval history: Patient seen and examined; chart review. No significant overnight events reported per staff. Blood cultures preliminary report was significant for gram- negative rods. Empiric antibiotic coverage was initiated on last night. Infectious disease consultation has been requested. Exam - Constitutional Vitals: Period Temp Pulse Resp BP Sys/Wagner Pulse Ox Last 24 Hr 96.7 F-98.6 F 69-87 16-20 114-131/62-92 96-100 General appearance: normal weight, no acute distress - Head Head exam: Present: normal inspection, normocephalic - Eye Eye exam: Present: EOMI. Absent: conjunctival injection Pupils: Present: MARLENY, normal accommodation - ENT ENT exam: Present: normal exam, normal external ear exam, normal oropharynx - Neck Neck exam: Present: normal inspection. Absent: lymphadenopathy, meningismus, thyromegaly - Respiratory Respiratory exam: Present: clear to auscultation bilaterally. Absent: rales, rhonchi, stridor, wheezes - Cardiovascular Cardiovascular exam: Present: regular rate and rhythm. Absent: diastolic murmur , gallop, JVD, rubs, systolic murmur - GI/Abdominal GI/Abdominal exam: Present: normal bowel sounds, soft - Extremities Exam Extremities exam: Present: normal inspection, normal capillary refill, full ROM. Absent: edema - Back Exam Back exam: Present: normal inspection - Neurological Exam Neurological exam: Present: alert, oriented X3, CN II-XII intact - Psychiatric Psychiatric exam: Present: normal affect, normal mood - Skin Skin exam: Present: normal color, warm, dry Results - Labs CBC & BMP: 07/12/17 02:09 07/12/17 02:09 Lab Results: I have reviewed the past 24 hour labs
[2017-07-12] MEDS ORDERED: VANCOMYCIN INJ 2,500 MG in SODIUM CHLORIDE 0.9% 500 ML IV ONE (11:00)
--- NOTE | 2017-07-12 11:54 | Infectious Disease Consult ---
Assessment and Plan (1) Positive blood culture Status: Acute Assessment and plan: The patient is completely nontoxic appearing. In speaking with the lab it looks like diphtheroids in the blood cultures which is usually considered a contaminant. Would have expected only one blood culture to be positive however unfortunately lab told me that some phlebotomies get the sample from one stick and one syringe so given how well the patient looks, there is a possibility of contamination. She does have HIV infection though well controlled but this complicates the situation. Recommendations: 1. Agree with empiric vancomycin 2. Add ampicillin 2 g every 6 hours 3. Repeat blood cultures 4. Follow-up finalized results and adjust antibiotics accordingly Thank you very much for the consult. Will follow. (2) History of HIV infection Status: Chronic Assessment and plan: Patient well controlled. Continue antiretroviral therapy - patient brought her medicines with her fortunately. History of Present Illness Chief complaint: Positive blood culture History of present illness: Ms. Lozano is a 41 year old female admitted with chest pain. She has HIV but recently saw her physician and was told everything is fine, CD4 count more than 800 and viral load undetectable. She reports strict adherence with antiretroviral therapy. She was recently taken azithromycin because of bronchitis. Today she is feeling better no more chest pain. She has not had any fever at home regular chills, no weight loss. Blood cultures were drawn routinely on admission and they have now come positive for gram-positive rods. I am asked to assist with management. Home Medications Medication Instructions Recorded Confirmed Type Albuterol Sulfate [Ventolin HFA] 1 - 2 puffs INH Q4H PRN 07/10/17 07/10/17 History Azithromycin Tab [Zithromax Tab] 250 mg PO DAILY 07/10/17 07/10/17 History Darunavir Ethanolate [Prezista] 600 mg PO BID 07/10/17 07/10/17 History Emtricitabine/Tenofov Alafenam 1 tablet PO QAM 07/10/17 07/10/17 History [Descovy 200-25 mg Tablet] Propranolol HCl [Propranolol Tab] 20 mg PO BEDTIME 07/10/17 07/10/17 History Ritonavir [Norvir] 100 mg PO BID 07/10/17 07/10/17 History methIMAzole [Methimazole] 10 mg PO QAM 07/10/17 07/10/17 History methIMAzole [Methimazole] 20 mg PO BID@1200,2000 07/10/17 07/10/17 History Allergies Allergy/AdvReac Type Severity Reaction Status Date / Time No Known Allergies Allergy Verified 07/10/17 11:27 12 point system: reviewed and no additional remarkable complaints except as stated (Per HPI) Medical,Surgical,& Family Hx - Medical History Cardio: No history of: Cardiac Dysrhythmia, CAD, Hypertension, [place] Endocrine: History of: Thyroid Disorder Other: History of: HIV - Surgical History HEENT Surgeries: Patient denies: Eye Surgery Abdominal Surgeries: Patient denies: Cholecystectomy Reproductive Surgeries: Surgical HX of;: Tubal Ligation Orthopedic Surgeries: Patient denies;: Orthopedic Surgery - Family History Family History: Reports;: Family Heart Disease - Social History Smoking Status: Never smoker Frequency of Alcohol Use: None Type of Drug Use: None Infectious Disease Exam H&P - Constitutional Vitals: Vital Signs Temp Pulse Resp BP Pulse Ox 97.9 F 73 18 130/70 100 07/12/17 11:28 07/12/17 11:28 07/12/17 11:28 07/12/17 11:28 07/12/17 11:28 Intake and Output 07/11/17 07/12/17 07/12/17 23:59 07:59 15:59 Intake Total 1500 / 1500 1000 / 1000 Balance 1500 / 1500 1000 / 1000 Intake: IV 1000 / 1000 1000 / 1000 Ns 1,000 ml @ 125 mls/hr 1000 / 1000 1000 / 1000 IV .Q8H RACHEL Rx#: [id number] Oral 500 / 500 0 / 0 Other: Voiding Method Toilet Toilet # Voids 5 3 # Bowel Movements 0 0 Exam: General: Patient comfortable, completely nontoxic appear HEENT: Mucous membranes pink and moist, anicteric acyanotic, MARLENY, no oropharyngeal exudates Neck: Supple, no thyroid gland enlargement Respiratory system: Breath sounds vesicular, no crepitations or wheezes Cardiovascular: Normal S1 and S2, no murmurs appreciated Abdomen: Normal bowel sounds, soft nontender throughout, no organomegaly or mass Genitourinary: No suprapubic pain or bladder distention, clear urine from Echols catheter Extremities: no edema Skin: No rash Reports - Labs CBC & BMP: 07/13/17 05:01 07/13/17 05:01 Labs: Laboratory Results - last 24 hr 07/12/17 07/12/17 02:09 02:09 WBC 8.6 RBC 3.60 L Hgb 8.8 L Hct 29.0 L MCV 80.6 L MCH 24 L MCHC 30.3 L RDW 17.2 Plt Count 388 MPV 10.3 Neut % (Auto) 37.3 L Lymph % (Auto) 46.4 Creek % (Auto) 9.9 Eos % (Auto) 5.0 Baso % (Auto) 0.7 Neut # (Auto) 3.2 Lymph # (Auto) 4.0 Creek # (Auto) 0.9 H Eos # (Auto) 0.4 Baso # (Auto) 0.1 Immature Gran % 0.7 Nucleated RBC % 0.0 Immature Gran # 0.06 Nucleated RBCs # 0.00 Immature Plt Fraction 0.0 Sodium 141 Potassium 4.7 Chloride 109 H Carbon Dioxide 25 Anion Gap 11.7 BUN 8 Creatinine 0.70 GFR Calculation 140 BUN/Creatinine Ratio 11.00 Glucose 92 Calculated Osmolality 278.3 Calcium 8.5 Phosphorus 2.8 Magnesium 1.9 Total Bilirubin < 0.39 AST 8 ALT 16 Alkaline Phosphatase 91 Total Protein 6.2 L Albumin 2.8 L Globulin 3.4 Albumin/Globulin Ratio 0.8 L - Reports Microbiology: Microbiology 07/10/17 Unknown Blood Culture - Preliminary Blood Gram positive rods 07/10/17 Unknown Blood Culture - Preliminary Blood Gram positive rods - Diagnostic Findings Procedure: CT - chest: image reviewed by me, report reviewed by me (No consolidation or other acute pathology)
[2017-07-12] MEDS ORDERED: AMPICILLIN INJ 2,000 MG in SODIUM CHLORIDE 0.9% 100 ML IV SCH (12:30)
[2017-07-12 12:56] LABS: Procalcitonin, S < 0.10 ng/mL (<=0.15)
[2017-07-12] MEDS: AMPICILLIN INJ 2,000 MG in SODIUM CHLORIDE 0.9% 50 ML IV SCH ×2 (15:22→20:07)
[2017-07-12] MEDS: PROPRANOLOL 20 MG TABLET PO SCH (21:37)
[2017-07-12] MEDS: VANCOMYCIN INJ 1,500 MG in SODIUM CHLORIDE 0.9% 500 ML IV SCH (23:27)
[2017-07-12] MEDS: TEMAZEPAM 15 MG CAPSULE PO PRN (23:27)
[2017-07-13] MEDS: ALBUTEROL/IPRATROPIUM 3 ML NEB RESP TX SCH ×4 (00:26→17:58)
[2017-07-13] MEDS: AMPICILLIN INJ 2,000 MG in SODIUM CHLORIDE 0.9% 50 ML IV SCH ×4 (01:38→21:12)
[2017-07-13 06:55] LABS: Basophils # 0.1 10*3/uL (0.0-0.2); Basophils % 0.8 % (0.0-0.8); Eosinophils # 0.4 10*3/uL (0.0-0.87); Eosinophils % 5.4 % (0.00-10.9); Hematocrit 29.2 VOL% (35.7-47.0); Hemoglobin 8.7 GM/DL (12.0-16.0); Immature Granulocytes % 0.5 %; Immature Granulocytes Absolute 0.04 #; Lymphocytes # 3.2 10*3/uL (1.4-4.0); Lymphocytes % 40.6 % (21.3-54.2); Mean Corpuscular HGB Conc 29.8 GM/DL (32-36); Mean Corpuscular Hemoglobin 24 PG (27-34); Mean Corpuscular Volume 81.1 FL (87-102); Mean Platelet Volume 10.9 FL (9.6-12.0); Monocytes % 12.8 % (1.7-12.7); Neutrophils # 3.2 10*3/uL (1.4-7.4); Neutrophils % 39.9 % (38.7-73.9); Platelet Count 392 T/CUMM (130-400); Red Cell Distribution Width 17.4 % (9.3-17.3)
[2017-07-13] MEDS: SODIUM CHLORIDE 0.9% 1,000 ML IV SCH ×3 (07:27→17:46)
[2017-07-13 07:35] LABS: Alanine Aminotransferase 15 U/L (13-56); Albumin 2.7 G/DL (3.4-5.0); Alkaline Phosphatase 92 U/L (45-117); Aspartate Amino Transferase 8 U/L (0-37); Bilirubin,Total < 0.39 MG/DL (0.2-1.0); Blood Urea Nitrogen 7 MG/DL (7-18); Calcium 8.8 MG/DL (8.5-10.1); Glucose 88 MG/DL (74-106); Magnesium 1.7 MG/DL (1.8-2.4); Osmolality,Calculated 277.3 MOS/KG (273-304); Phosphorous 3.3 MG/DL (2.5-4.9); Potassium 4.4 MMOL/L (3.5-5.1); Sodium 141 MMOL/L (136-145); Total Protein 6.3 G/DL (6.4-8.3)
[2017-07-13] MEDS: methIMAzole 10 MG TABLET PO SCH ×3 (08:20→21:12)
[2017-07-13] MEDS: ENOXAPARIN 40 MG/0.4 ML SYRINGE SUBCUT SCH (08:20)
[2017-07-13] MEDS: PANTOPRAZOLE 40 MG TABLET PO SCH (08:20)
[2017-07-13] MEDS: PREZISTA 600MG PO SCH ×2 (08:20→21:20)
[2017-07-13] MEDS: DESCOVY 200MG/25MG PO SCH (08:20)
[2017-07-13] MEDS: NORVIR 100 MG PO SCH ×2 (08:20→21:12)
--- NOTE | 2017-07-13 10:45 | Hospitalist Progress Note ---
Assessment and Plan (1) Positive blood culture Status: Acute Assessment and plan: Impression: 1. Positive blood culture, questionable contaminant 2. HIV infection Plan: Await identification of organisms in the blood cultures. May be able to discharge depending on species. This note was completed using [employer] voice recognition software. There may be manager operations research errors as a result. Current Visit: Yes Hospitalist: Subjective Interval history: Follow-up HIV with positive blood cultures. Infectious disease has seen the patient, and we appreciate their recommendations. The patient has 2 of 2 blood cultures positive for gram- positive rods. These may have been both drawn from the same needle, so it is difficult to tell if the findings are true positive or contaminants. The patient's HIV status certainly complicates the assessment. The patient says that she feels good, and wants to go home. Exam - Constitutional Vitals: Period Temp Pulse Resp BP Sys/Wagner Pulse Ox Last 24 Hr 96.8 F-98.4 F 69-109 16-20 120-130/59-84 94-100 Vital signs are noted above. Heart is regular with no murmur or gallop. Chest is clear with no rales or wheezes. She is awake and alert Results - Labs CBC & BMP: 07/13/17 05:01 07/13/17 05:01 Lab Results: I have reviewed the past 24 hour labs
[2017-07-13] MEDS: VANCOMYCIN INJ 1,500 MG in SODIUM CHLORIDE 0.9% 500 ML IV SCH (11:07)
[2017-07-13] MEDS: PROPRANOLOL 20 MG TABLET PO SCH (21:12)
[2017-07-13] MEDS: TEMAZEPAM 15 MG CAPSULE PO PRN (21:20)
[2017-07-14] MEDS: VANCOMYCIN INJ 1,500 MG in SODIUM CHLORIDE 0.9% 500 ML IV SCH (00:13)
[2017-07-14] MEDS: ALBUTEROL/IPRATROPIUM 3 ML NEB RESP TX SCH ×2 (01:09→07:15)
[2017-07-14] MEDS: AMPICILLIN INJ 2,000 MG in SODIUM CHLORIDE 0.9% 50 ML IV SCH ×2 (02:29→09:07)
[2017-07-14] MEDS: SODIUM CHLORIDE 0.9% 1,000 ML IV SCH ×2 (02:33→09:37)
[2017-07-14 08:15] VITALS: BP 121/73
[2017-07-14] MEDS: DESCOVY 200MG/25MG PO SCH (09:07)
[2017-07-14] MEDS: ENOXAPARIN 40 MG/0.4 ML SYRINGE SUBCUT SCH (09:08)
[2017-07-14] MEDS: NORVIR 100 MG PO SCH (09:08)
[2017-07-14] MEDS: PANTOPRAZOLE 40 MG TABLET PO SCH (09:08)
[2017-07-14] MEDS: PREZISTA 600MG PO SCH (09:08)
[2017-07-14] MEDS: methIMAzole 10 MG TABLET PO SCH (09:08)
--- NOTE | 2017-07-14 10:44 | Event Note ---
RETURN TO WORK Carmencita Lozano was admitted to [facility] on 07/10/2017, and was discharged on 07/14/2017. She may return to work on 07/17/2017 with no restriction. Jack Calzada MD [address] [facility] [place] [id number]
--- NOTE | 2017-07-14 10:48 | Discharge Summary ---
Hospital Course - Hospital Course Hospital Course: Discharge diagnosis: 1. Dyspnea and chest pain, etiology not known 2. HIV 3. Positive blood culture, likely a contaminant The patient presented to the hospital for evaluation of some chest discomfort and dyspnea. She had an extensive evaluation, including CT pulmonary angiogram , stress test, and echocardiogram. These results did not reveal any etiology or abnormality to explain the patient's symptoms. She had some blood cultures that grew organisms that ended up having to be sent out for further identification. We finally received the report, and it appears that the patient had some micrococcus growing in her blood. This is likely a contaminant , as she does not have any indwelling devices. She feels fine, and is anxious to go home. Medication reconciliation has been performed. Resume home diet. Activity as tolerated. She may return to work on 07/17/2017 This note was completed using [employer] voice recognition software. There may be geographic information system analyst errors as a result. Diagnosis - Discharge Diagnosis (1) Positive blood culture Status: Acute Discharge Plan - Discharge Data Disposition: Disch To Home/Self Care Condition at Discharge: Stable Discharge Diet: advance to your usual diet Activity: resume usual activities as tolerated Hygiene: no restrictions Weight Bearing at Discharge: full weight bearing Driving: no restrictions - Discharge Medications Continue Albuterol Sulfate [Ventolin HFA] 1 - 2 puffs INH Q4H PRN PRN Reason: Shortness Of Breath/Wheezing methIMAzole [Methimazole] 20 mg PO BID@1200,2000 Azithromycin Tab [Zithromax Tab] 250 mg PO DAILY methIMAzole [Methimazole] 10 mg PO QAM Ritonavir [Norvir] 100 mg PO BID Emtricitabine/Tenofov Alafenam [Descovy 200-25 mg Tablet] 1 tablet PO QAM Propranolol HCl [Propranolol Tab] 20 mg PO BEDTIME Darunavir Ethanolate [Prezista] 600 mg PO BID - Follow Up or Referral - Forms/Instructions Exam - Constitutional Vitals: Period Temp Pulse Resp BP Sys/Wagner Pulse Ox Last 24 Hr 97.3 F-98.5 F 66-115 16-20 98-129/59-74 94-100 Vital signs are noted above. Heart is regular with no murmur. Lungs are clear. She is awake and alert. Discharge Results Procedures and tests throughout hospitalization: Pending Orders 07/12/17 12:21 Blood Culture Stat 07/14/17 10:08 Vancomycin,Trough Routine Labs on day of discharge: Preliminary micro results at discharge 07/12/17 12:21 Blood Culture - Preliminary Blood No growth at 1 day 07/12/17 12:21 Blood Culture - Preliminary Blood No growth at 1 day DS: Provider Date of admission: 07/10/17 13:41 Primary care physician: Saul Ferreira MD Attending physician on admission: John Sandoval Consults: 07/11/17 08:39 Consult to Physician [CONS] Routine Comment: Please evaluate for chest pain Consulting Provider: Tanika Grant Person Notified: SUZANNA Date Notified: 07/11/17 Time Notified: 09:37 07/12/17 09:45 Consult to Pharmacy [CONS] Routine Reason for Pharmacy Consult: Dose/Manage Vancomycin Comment: 2/2 POSITIVE BLOOD CULTURES 07/12/17 09:50 Consult to Physician [CONS] Routine Comment: 2/2 Blood cultures gram positive rods Consulting Provider: Cally Jeffries Consulting Provider Notified: No When should Consulting Provider be notified: Now Person Notified: CHIO Date Notified: 07/12/17 Time Notified: 10:09 Discharging clinician: Jack Calzada MD Expected date of discharge: 07/14/17
--- NOTE | 2017-07-18 15:53 | Physician Query Form ---
CLICK EDIT DOCUMENT TO SELECT QUERY ANSWER --> OK --> SIGN Grazyna Fregoso RN Clinical Load Builder W) [phone] (f) [phone] [email or web address] PROVIDERS: Make your selection(s) from the choices in EACH section by typing an "x" and enter comments in the comment section. Please use your independent medical judgment in providing your response. This request does not imply that any particular answer is desired or expected. CLINICAL INDICATORS: (Providers should not edit this section) Based on documentation of "Acute chest pain" "Acute cough" "Suspicious for bronchitis or croup" "The patient presented to the hospital for evaluation of some chest discomfort and dyspnea. She had an extensive evaluation, including CT pulmonary angiogram, stress test, and echocardiogram. These results did not reveal any etiology or abnormality to explain the patient's symptoms" Treated with Duo Nebs and Ventolin HFA. Based on the above, could you clarify the appropriate diagnosis, if significant , that supports the above abnormalities and additional evaluation, monitoring, and/or treatment rendered: ( x) Acute chest pain due to cough from bronchitis ( ) Acute chest pain due to cough from croup ( ) Other, please specify: ( ) Clinically unable to determine COMMENTS: PLEASE ALSO DOCUMENT RESPONSE IN PROGRESS NOTES AND/OR DISCHARGE SUMMARY Use of terms such as suspected, likely, or probable (associated with a specific diagnosis that is being evaluated, monitored, or treated as if it exists) are acceptable and can be restated in the discharge summary if not ruled out. MTDD
--- NOTE | 2017-07-19 08:25 | Physician Query Form ---
CLICK EDIT DOCUMENT TO SELECT QUERY ANSWER --> OK --> SIGN Grazyna Fregoso RN Clinical Supervisor Instrument Maintenance W) [phone] (f) [phone] [email or web address] PROVIDERS: Make your selection(s) from the choices in EACH section by typing an "x" and enter comments in the comment section. Please use your independent medical judgment in providing your response. This request does not imply that any particular answer is desired or expected. CLINICAL INDICATORS: (Providers should not edit this section) Based on documentation of presenting symptoms of "chest discomfort" "dyspnea" "nausea and productive cough with yellow sputum" Has a history of HIV. Treated with IV antibiotics and Neb treatments Based on the above, could you clarify the appropriate diagnosis, if significant , that supports the above abnormalities and additional evaluation, monitoring, and/or treatment rendered: ( x) Presenting symptoms due to HIV ( ) Presenting symptoms NOT due to HIV ( ) Other, please specify: ( ) Clinically unable to determine COMMENTS: PLEASE ALSO DOCUMENT RESPONSE IN PROGRESS NOTES AND/OR DISCHARGE SUMMARY Use of terms such as suspected, likely, or probable (associated with a specific diagnosis that is being evaluated, monitored, or treated as if it exists) are acceptable and can be restated in the discharge summary if not ruled out. MTDD
== END 2017-07-14 11:49 | disposition home or self-care (01) | DRG 977 ==
LOC: N.ED 11:13 → N.EDINP 13:41 → SUATTDRO 13:41 → N.EDINP 16:45 → N.2E 16:54
PROVIDERS: ATTEND Internal Medicine Geriatric Medicine